=== PATIENT | female | born 1985 | race Caucasian/White ===

== ENCOUNTER 2019-07-21 22:34 | Emergency (ER) | payer OTHER ==
[~2019-07-21] VITALS: Ht 162.6 cm; Wt 84.1 kg
[2019-07-21 22:47] VITALS: Ht 162.6 cm; Wt 84.1 kg
[2019-07-21] MEDS ORDERED: AUGMENTIN 875-11 TAB PO (23:56)
[2019-07-21] MEDS ORDERED: NAPROSYN500 MG PO (23:56)
[2019-07-22 00:23] VITALS: BP 141/93
== END 2019-07-22 00:23 | disposition home or self-care (01) ==
LOC: D.ER 22:34
DX: J03.90 Acute tonsillitis, unspecified (principal); Z72.0 Tobacco use